=== PATIENT | male | born 1965 | race Caucasian/White ===

== ENCOUNTER 2018-03-29 06:16 | Day surgery (SDC) | payer OTHER ==
[~2018-03-29 06:16] MED LIST: ALLO300T PO; ATOR40TA59 PO; CLON1TAB11 PO; DOCU100C28 PO; HYDR-2761 PO; IBUP1TAB12 PO; IBUP200T44 PO; LISI1TAB5 PO; LORA10TA68 PO; OMEP20CA9 PO; PSYL0.526 PO
[2018-03-29] MEDS ORDERED: ROPIVacaine 0.5% PF 20 ML VIAL. ONE ×2 (06:46→11:04)
[2018-03-29] MEDS ORDERED: fentaNYL PF VIAL 100 MCG/2 ML VIAL IV PRN ×2 (07:00)
[2018-03-29] MEDS ORDERED: LIDOCAINE 1% PF 2 ML VIAL. ID PRN (07:00)
[2018-03-29] MEDS ORDERED: PROCHLORPERAZINE 10 MG/2 ML VIAL. IV PRN (07:00)
[2018-03-29] MEDS ORDERED: ONDANSETRON PF 4 MG/2 ML VIAL. IV PRN (07:00)
[2018-03-29] MEDS ORDERED: MORPHINE SULFATE 2 MG/ML VIAL. IV PRN (07:00)
[2018-03-29] MEDS ORDERED: BUPIVACAINE MPF 0.5% 30 ML VIAL. IJ ONE (07:00)
[2018-03-29] MEDS ORDERED: IV RINGERS,LACTATED 1000ML 1,000 ML IV SCH (07:00)
[2018-03-29] MEDS ORDERED: HYDROmorphone 2 MG/ML VIAL IV PRN (07:00)
[2018-03-29] MEDS ORDERED: PROPOFOL 20 ML IV ONE ×3 (07:37→09:08)
[2018-03-29] MEDS ORDERED: fentaNYL PF VIAL 100 MCG/2 ML VIAL ONE ×2 (07:37→09:36)
[2018-03-29] MEDS ORDERED: LIDOCAINE 2% PF Vial for OR 5 ML VIAL. ONE (07:37)
[2018-03-29] MEDS ORDERED: ceFAZolin SODIUM 3 GM in IV DEXTROSE 5% 100ML 100 ML IV ONE (08:45)
--- NOTE | 2018-03-29 08:45 | DISCH ---
DISCHARGE INSTRUCTIONS Condition on Discharge Condition on Discharge: Stable Activity After Discharge Activity Instructions for Disc: Other, see below (Fine motor use of left hand only, may type, write, and perform light grasp) Other activity instructions: May return to work 04/01/2018 no use of left hand Diet after Discharge Diet after Discharge: Regular Wound Incision Care Wound/Incision Care: Ice to area for comfort, Keep wound elevated, Do not change dressing Contacting the DR. after DC Call your doctor for: Concerns you may have Follow-Up Follow up with: Hodan 9 days at [facility] KESHAWN MAE MD Mar 29, 2018 08:45
[2018-03-29] MEDS ORDERED: HYDR-3135 PO (08:54)
[2018-03-29] MEDS ORDERED: DEXAMETHASONE SOD PHOS 20 MG/5 ML VIAL. ONE (09:06)
[2018-03-29] MEDS ORDERED: ONDANSETRON PF 4 MG/2 ML VIAL. ONE (09:14)
[2018-03-29] MEDS ORDERED: SEVOFLURANE 31 TO 60 MINUTES. IH ONE (09:14)
[2018-03-29] MEDS ORDERED: MORPHINE SULFATE 4 MG/ML VIAL. ONE (10:31)
--- NOTE | 2018-03-29 10:37 | PDOC4 ---
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 He had immediate onset of pain and deformity was evaluated at [facility] and I went over with him the rationale for operative evaluation and treatment. I talked to him about even under the best of circumstances the likelihood of some stiffness perhaps some premature degenerative change and weakness but that this should be minimized somewhat by reducing the fracture is anatomically as possible and fixating it so it has a chance to heal in that manner. There is a possibility of nonhealing or fracture collapse infection nerve or blood vessel damage medical or other anesthetic complications as well as the premature degenerative changes and other issues mentioned above. All his questions were answered he wishes to proceed with surgical evaluation and treatment. Operative text: Patient was identified procedure verified patient placed in the supine position on the operating table. After adequate amounts of general LMA anesthesia were administered the upper extremity was prepped and draped in standard sterile fashion. After timeout was performed patient procedure identified and verified the left upper extremity was exsanguinated by Esmarch bandage tourniquet inflated to 300 mmHg and a standard volar Nick approach was carried out to the left wrist flexor carpi radialis was taken radially subperiosteal dissection was carried out and open reduction was carried out with a wide Shandra distal radius locking plate which was placed with a bicortical nonlocking screw in the sliding hole plate was positioned anatomically under fluoroscopic guidance and after near anatomic reduction was carried out distal row screws were placed under fluoroscopic guidance with locking screws examined under fluoroscopic guidance for their length and reduction. Excellent alignment was noted at the joint surface pegs were placed in the to radial and ulnar proximal holes with locking screws filled then in the remainder nonlocking bicortical screws had excellent fixation fixating the proximal portion of the plate. All hardware was checked under multiple fluoroscopic views for positioning and length. Thorough irrigation carried out normal saline solution and a total of 20 mL of half percent plain Marcaine were infused in the skin and subcutaneous areas subcutaneous closure with buried Vicryl suture skin closure with emily a well-padded Ortho-Glass volar splint was placed fingers were noted be warm pink find deflation of tourniquet patient was returned to recovery room in stable condition having tolerated procedure well KESHAWN MAE MD Mar 29, 2018 10:37
[2018-03-29] MEDS ORDERED: MORPHINE SULFATE 10 MG/ML VIAL. IM ONE (10:45)
[2018-03-29] MEDS ORDERED: oxyCODONE/APAP 10/325 1 TAB TABLET PO ONE (10:45)
[2018-03-29 12:00] VITALS: BP 141/71
== END 2018-03-29 12:22 | disposition home or self-care (01) ==
LOC: SURG 06:16
PROVIDERS: ATTEND Orthopaedic Surgery
DX: S52.572A Other intraarticular fracture of lower end of left radius, initial encounter for closed fracture (principal); I10 Essential (primary) hypertension; K21.9 Gastro-esophageal reflux disease without esophagitis; M10.9 Gout, unspecified; Z83.3 Family history of diabetes mellitus; Z98.890 Other specified postprocedural states; Z88.8 Allergy status to other drugs, medicaments and biological substances; X58.XXXA Exposure to other specified factors, initial encounter; Y93.89 Activity, other specified; Y92.89 Other specified places as the place of occurrence of the external cause; Y99.8 Other external cause status; Z79.899 Other long term (current) drug therapy
CPT/HCPCS: 25609; 76000; A7015; C1713; J0690; J1100; J2001; J2270; J2405; J2704; J2795; J3010; J3490